=== PATIENT | female | born 1955 | race Caucasian/White ===

== ENCOUNTER 2019-04-15 10:03 | Emergency (ER) | payer OTHER, SELFPAY ==
[2019-04-15 10:18] VITALS: BP 172/87; PULSE 100; RESP 18; TEMP 36.8; O2SAT 100
[2019-04-15 10:24] VITALS: BP 162/91; PULSE 100; RESP 18; TEMP 36.8; O2SAT 100; BMI 19.3
--- NOTE | 2019-04-15 11:36 | ED.SKABFB ---
HPI - Skin/Abscess/Foreign Bdy <DOT Sewell-BC - Last Filed: 04/15/19 13:56> General Chief complaint: Skin/Abscess/Foreign Body Stated complaint: strept throat/right arm/shoulder pain x8 days Time Seen by Provider: 04/15/19 11:04 Source: patient and family Mode of arrival: Family Vehicle Limitations: no limitations History of Present Illness HPI narrative: The patient is a 63-year-old presents with a chief complaint of sore throat, painful right arm and rash. She states that her right arm pain has been shooting electric feeling and going on for several days. Yesterday she noticed a red blistery rash on her chest, radiating around to her back only on the right side. She states that all of her symptoms or on her right side. She complains of general fatigue and sore throat she states the sore throat started approximately 8 days ago and she saw a chiropractor. Chiropractor prescribed an herbal supplement called 303 which is an anti-inflammatory/muscle relaxer so states the patient. She states this did not help. She is concerned about the rash as she has family coming for Thanksgiving next week. She denies any chest pain or shortness of breath. She Related Data Previous Rx's Medication Instructions Recorded gabapentin 100 mg PO BID #20 cap 04/15/19 hydrocodone-acetaminophen [Willoughby] 1 tab PO Q4-6H PRN #7 tab 04/15/19 prednisone 50 mg PO DAILY #5 tab 04/15/19 valacyclovir 1,000 mg PO TID 7 Days #21 tab 04/15/19 Allergies Allergy/AdvReac Type Severity Reaction Status Date / Time Sulfa (Sulfonamide Allergy Unknown Verified 04/15/19 10:35 Antibiotics) Review of Systems <RENITA SewellBC - Last Filed: 04/15/19 13:56> Review of Systems Narrative: GENERAL: Denies chills, fatigue, malaise, fever, sweats. HEENT: See HPI RESPIRATORY: Denies dyspnea, cough, wheezing, hemoptysis, sputum. CARDIOVASCULAR: Denies chest pain, palpitations, orthopnea, edema, GASTROINTESTINAL: Denies nausea, vomiting, abdominal pain, diarrhea, constipation, melena. : Denies dysuria, frequency, incontinence, hematuria, urinary retention. MUSCULOSKELETAL: denies weakness, joint pain, or bony pain SKIN: See HPI NEUROLOGIC: Denies weakness, headache, numbness, change in speech, confusion, seizures, incoordination. PSYCHIATRIC: No concerning psychosocial issues. 12 point review of systems is negative except for those stated above Patient History <Ly LOLA Gill - Last Filed: 04/15/19 13:56> Social History Smoking Status: Former smoker alcohol intake frequency: 0-2 drinks per day Substance Use Type: does not use Exam <Ly LOLA Gill - Last Filed: 04/15/19 13:56> Narrative Exam Narrative: GENERAL: Thin female in no acute distress HEAD: Atraumatic. Normocephalic. No temporal or scalp tenderness. EYES: Pupils equal round and reactive. Extraocular motions intact. No scleral icterus. No injection or drainage. ENT: Nose without bleeding, purulent drainage or septal hematoma. Throat without erythema, tonsillar hypertrophy or exudate. Uvula midline. Airway patent. NECK: Trachea midline. No JVD or lymphadenopathy. Supple, nontender, no meningeal signs. CARDIOVASCULAR: Regular rate and rhythm without murmurs, gallops, or rubs. RESPIRATORY: Clear to auscultation. Breath sounds equal bilaterally. No wheezes, rales, or rhonchi. No cough. No increased respiratory effort. No accessory muscle use. GASTROINTESTINAL: Abdomen soft, non-tender, nondistended. No hepato-splenomegaly, or palpable masses. No guarding. EXTREMITIES: No clubbing, cyanosis, or edema. No joint tenderness, effusion, or edema noted. BACK: Nontender without deformity or crepitance. No flank tenderness. NEURO: AOx3. SKIN: Vesicular rash noted on right side of chest and back, following dermatome, radiating around just distal to the axilla. Crusting noted. No rash on face or in her eyes. No spreading erythema. Initial Vital Signs Initial Vital Signs: Vital Signs Temperature 98.2 F 04/15/19 10:18 Pulse Rate 100 H 04/15/19 10:18 Respiratory Rate 18 04/15/19 10:18 Blood Pressure 172/87 H 04/15/19 10:18 Pulse Oximetry 100 04/15/19 10:18 <Chelsie Hoff DO - Last Filed: 04/18/19 07:03> Initial Vital Signs Initial Vital Signs: Vital Signs Temperature 98.2 F 04/15/19 10:18 Pulse Rate 100 H 04/15/19 10:18 Respiratory Rate 18 04/15/19 10:18 Blood Pressure 172/87 H 04/15/19 10:18 Pulse Oximetry 100 04/15/19 10:18 Course <DOT Sewell- - Last Filed: 04/15/19 13:56> Vital Signs Vital signs: Vital Signs - 8 hr 04/15/19 10:18 04/15/19 10:24 Temperature 98.2 F 98.2 F Pulse Rate 100 H 100 H Respiratory Rate 18 18 Blood Pressure 162/91 H Blood Pressure [Left Arm] 172/87 H Pulse Oximetry 100 100 <Chelsie Hoff DO - Last Filed: 04/18/19 07:03> Vital Signs Vital signs: Vital Signs - 8 hr 04/15/19 10:18 04/15/19 10:24 Temperature 98.2 F 98.2 F Pulse Rate 100 H 100 H Respiratory Rate 18 18 Blood Pressure 162/91 H Blood Pressure [Left Arm] 172/87 H Pulse Oximetry 100 100 MDM - Skin/Abscess/Foreign Bdy <DOT Sewell- - Last Filed: 04/15/19 13:56> Lab Data Labs: Point of Care Testing Rapid Strep A Negative MDM Narrative Medical decision making narrative: The patient is a 63-year-old female who presents with various complaints including sore throat, arm pain, and rash. Her exam indicates shingles, which I likely believe contributed to her general feelings of malaise prior to the rash breaking out. Given that the rash occurred in the past day or 2, started her on valacyclovir. For her pain a prescribe gabapentin, prednisone and Willoughby. I discussed that prednisone can increased blood sugars etc. Discussed that Willoughby can be constipating and sedating. Encourage PCP follow-up in the next few days. I spent time with the patient discussing that shingles could easily be transmitted, to avoid patient's her immunocompromised such as cancer treatment in unvaccinated children. Patient has no questions or concerns upon discharge and states understanding of return precautions as well as follow-up care. I did not force with the patient that if she or someone she knows develops rash on her face, or eyes to be evaluated immediately. <Chelsie Silvanick, DO - Last Filed: 04/18/19 07:03> Lab Data Labs: Point of Care Testing Rapid Strep A Negative Discharge Plan Departure Patient Disposition: Home Clinical Impression: Shingles Qualifiers: Herpes zoster complications: without complications Qualified Code(s): B02.9 - Zoster without complications Discharge Date/Time: 04/15/19 12:24 Instructions: Shingles (Herpes Zoster) (Alternative Therapy), DI for Shingles Activity Restrictions/Additional Instructions: Your rash appears to be shingles. This is an infection and the nerves in skin. It is caused by the same virus that causes chickenpox. I have prescribed an antiviral medication. I have also given you pain medications and steroids. Please follow up with primary care provider. As discussed, this rash can be spread to others especially those with decreased immune systems such as those in cancer treatment or unvaccinated children. Please follow up with primary care provider in the next few days. Please monitor for rash on her face or near your eyes. Please be evaluated if this happens. Prescriptions: New valacyclovir 1 gram tablet 1,000 mg PO TID 7 Days Qty: 21 RF: 0 hydrocodone-acetaminophen [Willoughby] 5-325 mg tablet 1 tab PO Q4-6H PRN (Reason: pain) Qty: 7 RF: 0 gabapentin 100 mg capsule 100 mg PO BID Qty: 20 RF: 0 prednisone 50 mg tablet 50 mg PO DAILY Qty: 5 RF: 0
== END 2019-04-15 12:24 | disposition home or self-care (01) ==
PROVIDERS: Emergency Provider Nurse Practitioner Family
DX: B02.9 Zoster without complications (principal)
CPT/HCPCS: 87880; 99282; 99283

== ENCOUNTER 2019-08-02 08:15 | Outpatient (RCR) | payer OTHER, SELFPAY ==
--- NOTE | 2019-07-12 17:30 | PT.OIE ---
Current Diagnoses Pain in unspecified shoulder (07/12/19) Muscle weakness (generalized) (07/12/19) Abnormal posture (07/12/19) Past Medical History (Last Updated 06/15/19 @ 16:00 by KENNY Lee) Anemia (Inactive ~1992) Chicken pox (Resolved ~1963) Eczema (Inactive) Fibroids (Inactive ~1992) Frozen shoulder (Acute) Herpes (Inactive ~2012) Human papilloma virus (Inactive) Mumps (Resolved ~1959) Osteopenia (Chronic) Post herpetic neuralgia (Acute) Shoulder pain (Chronic ~2018) Visit Care Team Role Provider Type KENNY Lee Referring Provider Advanced Staffing Operations Manager Specialty: Family Practice Address: [address] [place] [address], [id number] Email: [email or web address] Norah Hawkins [place] Primary Care Provider Non-Staff Specialty: Medical Address: [address] [place] [address], [id number] Email: Jameson Pickering DO Attending Provider Physician Other Providers Specialty: Family Practice Address: [address] [place] [address], [id number] Email: [email or web address] Initial Evaluation PT-OP-A Visit Information Start: 07/17/19 17:08 Freq: Status: Active Protocol: Document 07/12/19 17:09 AW (Rec: 07/17/19 18:02 AW [id number]) Out-Patient Physical Therapy Visit Information Visit Information Visit Type Initial Evaluation Visit Start Time 16:00 Visit Stop Time 16:45 Total Visit Minutes 45 Visit Number 1 Number of CAR TOP BOLTER Visits 0 Evaluation Information Evaluation Date 07/12/19 PT-OP-B Current Condition Start: 07/17/19 17:08 Freq: Status: Active Protocol: Document 07/12/19 17:09 AW (Rec: 07/17/19 18:02 AW [id number]) Current Condition History of Current Condition Onset Date 04/15/19 Current Complaints right shoulder and elbow pain, weakness History of Current Condition Pt was seen in the emergency department on for a rash across her chest and right arm along with painful and weak right arm. She was diagnosed with shingles and prescribed gabapentin, prednisone, and norco which she used but not for as long as prescribed. She describes being essentially immobile for ~20 hours per day during the worst part of her illness, unable to use her right arm at all. She states she wasn't strong enough to hold a pencil ~3 weeks ago and has had difficulty sleeping. She endorses burning sensation above and below her right elbow and a constant sensation as if she hit her funny bone. 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 Pt lives alone and has had to adapt for ADL management. She states she has been wearing mostly leggings due to difficulty with buttoning and zipping. She is taking showers now but believes it takes twice as long as normal due to weakness and pain in her right arm. She is toileting independently but using her left hand for hygiene. Prior Treatments and Tests Pt had hand therapy and is independent with a home program for hand exercises and pulleys at home. She has also tried massage and accupuncture. 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 Baseline Function- Recreation/Hobbies Able to hike up to 4 miles at a time with uneven terrain and elevation changes Baseline Function- Other Able to open jars and use drafting tools with her RUE. Current Functional Impairments (Reported) Functional Limitations- ADL's Difficulty managing buttons, sippers. Increased time needed for showers due to pain and weakness of RUE. Needs to use left hand to complete toilet hygiene Functional Limitations- Work/School Unable to use drafting tools > 1-1.5 hours at a time and with increased difficulty. 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 Functional Limitations- Recreation/ Currently walking up to 3 Hobbies miles at a time but only on flat surfaces PT-OP-C Subjective Start: 07/17/19 17:08 Freq: Status: Active Protocol: Document 07/12/19 17:09 AW (Rec: 07/18/19 16:55 AW [id number]) Patient Questionnaires Quick Dash- Upper Extremity Quick Dash UE Score 68 Quick Dash UE Impairment 60 to 79% Impaired (Score 60- 79) PT-OP-H Neuro Start: 07/17/19 17:08 Freq: Status: Active Protocol: Document 07/12/19 17:09 AW (Rec: 07/17/19 18:02 AW [id number]) Sensation Evaluation Gross Sensation Gross Sensation Right UE Impaired Sensation Description Burning Comments Summary Comments Burning sensation present above and below right elbow. Coordination Evaluation Upper Extremity Tests Right Finger to Nose Test Normal Performance Finger to Therapist's Finger Test Normal Performance Comments Coordination Comments No difference in UE coordination noted side to side. PT-OP-J Posture/Palpation/Skin Start: 07/17/19 17:08 Freq: Status: Active Protocol: Document 07/12/19 17:09 AW (Rec: 07/17/19 18:02 AW [id number]) Posture Evaluation Position Sitting Evaluation View Lateral Comments Posture Comments R arm held in internal rotation. Slight scapular winging noted on right side. PT-OP-K Range of Motion Start: 07/17/19 17:08 Freq: Status: Active Protocol: Document 07/12/19 17:09 AW (Rec: 07/17/19 18:02 AW [id number]) Cervical Spine Range of Motion Cervical Spine Active Degrees Testing Position Sitting Flexion 22 Extension 10 Rotation Left 70 Rotation Right 55 ROM Limitations Soft Tissue Tightness Comments Pt reports tight posterior neck musculature with active flexion Shoulder Goniometric Range of Motion Shoulder Right Active Flexion 150 Abduction 90 External Rotation at 0 degrees Abduction 55 Internal Rotation Behind Back (text) T12 Left Active Flexion 160 Abduction 160 External Rotation at 0 degrees Abduction 65 Internal Rotation Behind Back (text) T6 Shoulder ROM Limitations Shoulder ROM Limitations Muscle Weakness,Pain Comments Pt able to perform forward flexion on the right but tends to hike her shoulder. Elbow/Forearm Range of Motion Elbow/Forearm Right Active ROM Testing Position Sitting Elbow/Forearm ROM Limitations Comments Supination/pronation equal bilaterally without restriction. R elbow lacks ~5 degrees active extension Wrist Goniometric Range of Motion ROM Limitations Comments Unable to assess due to elbow/ wrist pain PT-OP-L Special Tests Start: 07/17/19 17:08 Freq: Status: Active Protocol: Document 07/12/19 17:09 AW (Rec: 07/17/19 18:02 AW [id number]) Special Tests Cervical Spine Special Tests Spurling's Test Test Results negative bilaterally Neural Special Tests- Upper Body Tinel Sign Test Results right positive in ulnar distribution Comments testing produces tingling in ulnar side of hand PT-OP-M Strength Start: 07/17/19 17:08 Freq: Status: Active Protocol: Document 07/12/19 17:09 AW (Rec: 07/17/19 18:02 AW [id number]) Shoulder Strength Shoulder Manual Muscle Testing Right Flexion 4+ Good+ Extension 4+ Good+ Abduction (C5) 4 Good Comments Unable to assess IR/ER due to pain. Left Flexion 5 Normal Extension 5 Normal Abduction (C5) 5 Normal External Rotation 4+ Good+ Internal Rotation 4+ Good+ Elbow/Forearm Strength Elbow and Forearm Manual Muscle Testing Right Reason Not Measured Pain Wrist Strength Wrist Manual Muscle Testing Right Reason Not Measured Pain Hand Plier Worker/Pinch Strength Hand Dominance Hand Dominance Right Hand Strength Right Comments Plier Worker 4+/5 left, 3+/5 right PT-OP-Q Treatments Start: 07/17/19 17:08 Freq: Status: Active Protocol: Document 07/12/19 17:09 AW (Rec: 07/17/19 18:02 AW [id number]) Therapeutic Exercises Supine Exercises scapular protraction Supine Exercise Name scapular protraction Side bilateral Reps/Minutes 10 reps x 2 Sitting Exercises scapular retraction Sitting Exercise Name scapular retraction Side bilateral Reps/Minutes 15 reps x 2 Comments tolerated well Self-Care/Home Management Treatment Education Patient Education Home Exercise Program PT-OP-T Assessment and Plan Start: 07/17/19 17:08 Freq: Status: Active Protocol: Document 07/12/19 17:09 AW (Rec: 07/17/19 18:02 AW [id number]) Physical Therapy Assessment Rehab Potential Rehabilitation Potential Excellent Evaluation Complexity Number of Personal Factors/Comorbidities 1-2 Number of Body Systems Impaired 1-2 Clinical Presentation at Evaluation Stable Impairments Impairments Activity Tolerance,Functional Activities,Functional Mobility ,Pain,Posture,ROM,Sensation, Soft Tissue Mobility,Strength Goals Four Impairment Sensation disturbance in RUE Retirement Goal (LTG) Pt will report reduction in burning sensation around her right elbow as evidenced by ability to sleep 6 hours or greater without waking due to pain. LTG Duration 10/04/[address] Goal (LTG) Pt will demonstrate RUE strength within one half-grade of LUE for improved symmetry and ability to participate in work and recreation. LTG Duration 10/04/2019 Two Impairment 68% disability on quick DASH Short Term Goal (STG) Pt will score 55% or less on quick DASH to demonstrate decreased disability relative to RUE STG Duration 08/23/2019 Retirement Goal (LTG) Pt will score 40% or less on quick DASH to demonstrate decreased disability relative to RUE LTG Duration 10/04/2019 One Impairment Difficulty performing work duties Short Term Goal (STG) Pt will use pencil/drafting tools with right hand to work up to 3 hours at a time. 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 She has undergone hand therapy with good results. 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 Her RUE strength is significantly less than her LUE and she presents with symptoms consistent with postherpetic neuralgia affecting the region around her right elbow. She will benefit from outpatient PT to address strength and functional activity deficits as well as to work on desensitization of her RUE. She would benefit from a primarily land-based approach but is also interested in trying aquatic therapy a few times during her plan of care. Physical Therapy Plan Frequency and Duration Frequency of Treatment 1-2x/week Duration of Treatment 12 weeks Plan of Care Start Date 07/12/19 Plan of Care End Date 10/04/19 Therapeutic Interventions Therapeutic Interventions Aquatic Therapy,Home Exercise Program,Joint Mobilizations, Manual Therapy,Neuromuscular Re-education,Patient/Caregiver Education,Self-Care/Home Management,Sensory Integration ,Soft Tissue Mobilization, Taping,Therapeutic Activities, Therapeutic Exercises Modalities Cold Pack/Ice Massage,Electric Stimulation Next Visit Focus/Plan Next Note Type Treatment Note
--- NOTE | 2019-07-12 17:30 | PT.OPPOC ---
Physical, Occupational & Speech Therapy At [facility] Current Diagnoses Pain in unspecified shoulder (07/12/19) Muscle weakness (generalized) (07/12/19) Abnormal posture (07/12/19) Visit Care Team Role Provider Type KENNY Lee Referring Provider Advanced Reel Winder Specialty: Family Practice Address: [address] [place] [address], [id number] Email: [email or web address] Norah Hawkins ND Primary Care Provider Non-Staff Specialty: Medical Address: [address] [place] [address], [id number] Email: Jameson Pickering DO Attending Provider Physician Other Providers Specialty: [facility] Practice Address: [address] [place] [address], [id number] Email: [email or web address] Plan Of Care PT-OP-T Assessment and Plan Start: 07/17/19 17:08 Freq: Status: Active Protocol: Document 07/12/19 17:09 AW (Rec: 07/17/19 18:02 AW [id number]) Physical Therapy Assessment Rehab Potential Rehabilitation Potential Excellent Evaluation Complexity Number of Personal Factors/Comorbidities 1-2 Number of Body Systems Impaired 1-2 Clinical Presentation at Evaluation Stable Impairments Impairments Activity Tolerance,Functional Activities,Functional Mobility ,Pain,Posture,ROM,Sensation, Soft Tissue Mobility,Strength Goals Four Impairment Sensation disturbance in RUE Servicer [employer] Trailers Goal (LTG) Pt will report reduction in burning sensation around her right elbow as evidenced by ability to sleep 6 hours or greater without waking due to pain. LTG Duration 10/04/2019 Three Impairment strength Shelter Goal (LTG) Pt will demonstrate RUE strength within one half-grade of LUE for improved symmetry and ability to participate in work and recreation. LTG Duration 10/04/2019 Two Impairment 68% disability on quick DASH Short Term Goal (STG) Pt will score 55% or less on quick DASH to demonstrate decreased disability relative to RUE STG Duration 08/23/2019 [employer] [address]ers Goal (LTG) Pt will score 40% or less on quick DASH to demonstrate decreased disability relative to RUE LTG Duration 10/04/2019 One Impairment Difficulty performing work duties Short Term Goal (STG) Pt will use pencil/drafting tools with right hand to work up to 3 hours at a time. 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 She has undergone hand therapy with good results. 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 Her RUE strength is significantly less than her LUE and she presents with symptoms consistent with postherpetic neuralgia affecting the region around her right elbow. She will benefit from outpatient PT to address strength and functional activity deficits as well as to work on desensitization of her RUE. She would benefit from a primarily land-based approach but is also interested in trying aquatic therapy a few times during her plan of care. Physical Therapy Plan Frequency and Duration Frequency of Treatment 1-2x/week Duration of Treatment 12 weeks Plan of Care Start Date 07/12/19 Plan of Care End Date 10/04/19 Therapeutic Interventions Therapeutic Interventions Aquatic Therapy,Home Exercise Program,Joint Mobilizations, Manual Therapy,Neuromuscular Re-education,Patient/Caregiver Education,Self-Care/Home Management,Sensory Integration ,Soft Tissue Mobilization, Taping,Therapeutic Activities, Therapeutic Exercises Modalities Cold Pack/Ice Massage,Electric Stimulation Next Visit Focus/Plan Next Note Type Treatment Note Plan of Care Dates Plan of Care Start Date 07/12/19 Plan of Care End Date 10/04/19 Electronically Signed by: Milla Arcos, PT 07/18/19 [id number] Please Sign and Return: I have reviewed this Plan of Care and certify that the skilled therapy services above are required to meet the patient?s needs. Physician Signature Date Printed Name and Credentials Clinical Instructor Signature Printed Name and Credentials
--- NOTE | 2019-07-19 16:54 | PT.OTN ---
Current Diagnoses Pain in unspecified shoulder (07/19/19) Muscle weakness (generalized) (07/19/19) Abnormal posture (07/19/19) Physical Therapy Treatment Note PT-OP-A Visit Information Start: 07/17/19 17:08 Freq: Status: Active Protocol: Document 07/19/19 16:32 AW (Rec: 07/19/19 16:54 AW [id number]) Out-Patient Physical Therapy Visit Information Visit Information Visit Type Treatment Note Visit Start Time 13:45 Visit Stop Time 14:30 Total Visit Minutes 45 Visit Number 2 Number of SIDE TRIMMER Visits 0 Evaluation Information Evaluation Date 07/12/19 PT-OP-B Current Condition Start: 07/17/19 17:08 Freq: Status: Active Protocol: Document 07/12/19 17:09 AW (Rec: 07/17/19 18:02 AW [id number]) Current Condition History of Current Condition Onset Date 04/15/19 Current Complaints right shoulder and elbow pain, weakness History of Current Condition Pt was seen in the emergency department on for a rash across her chest and right arm along with painful and weak right arm. She was diagnosed with shingles and prescribed gabapentin, prednisone, and norco which she used but not for as long as prescribed. She describes being essentially immobile for ~20 hours per day during the worst part of her illness, unable to use her right arm at all. She states she wasn't strong enough to hold a pencil ~3 weeks ago and has had difficulty sleeping. She endorses burning sensation above and below her right elbow and a constant sensation as if she hit her funny bone. 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 Pt lives alone and has had to adapt for ADL management. She states she has been wearing mostly leggings due to difficulty with buttoning and zipping. She is taking showers now but believes it takes twice as long as normal due to weakness and pain in her right arm. She is toileting independently but using her left hand for hygiene. Prior Treatments and Tests Pt had hand therapy and is independent with a home program for hand exercises and pulleys at home. She has also tried massage and accupuncture. Future Testing and Treatments Planned None identified Treatment Goals Patient/Caregiver Goals Pt hopes to have return of full function in her RUE to support full return to work drafting 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 Baseline Function- Recreation/Hobbies Able to hike up to 4 miles at a time with uneven terrain and elevation changes Baseline Function- Other Able to open jars and use drafting tools with her RUE. Current Functional Impairments (Reported) Functional Limitations- ADL's Difficulty managing buttons, sippers. Increased time needed for showers due to pain and weakness of RUE. Needs to use left hand to complete toilet hygiene Functional Limitations- Work/School Unable to use drafting tools > 1-1.5 hours at a time and with increased difficulty. 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 Functional Limitations- Recreation/ Currently walking up to 3 Hobbies miles at a time but only on flat surfaces PT-OP-C Subjective Start: 07/17/19 17:08 Freq: Status: Active Protocol: Document 07/19/19 16:32 AW (Rec: 07/19/19 16:54 AW [id number]) OP-PT Subjective Patient Comments Patient Comments Pt has done less pruning in the past week and got her tools sharpened to increase ease of use. She feels she is able to appreciate an overall arc of improvement in her symptoms but is frustrated at how slowly things are progressing. PT-OP-H Neuro Start: 07/17/19 17:08 Freq: Status: Active Protocol: Document 07/12/19 17:09 AW (Rec: 07/17/19 18:02 AW [id number]) Sensation Evaluation Gross Sensation Gross Sensation Right UE Impaired Sensation Description Burning Comments Summary Comments Burning sensation present above and below right elbow. Coordination Evaluation Upper Extremity Tests Right Finger to Nose Test Normal Performance Finger to Therapist's Finger Test Normal Performance Comments Coordination Comments No difference in UE coordination noted side to side. PT-OP-J Posture/Palpation/Skin Start: 07/17/19 17:08 Freq: Status: Active Protocol: Document 07/12/19 17:09 AW (Rec: 07/17/19 18:02 AW [id number]) Posture Evaluation Position Sitting Evaluation View Lateral Comments Posture Comments R arm held in internal rotation. Slight scapular winging noted on right side. PT-OP-K Range of Motion Start: 07/17/19 17:08 Freq: Status: Active Protocol: Document 07/12/19 17:09 AW (Rec: 07/17/19 18:02 AW [id number]) Cervical Spine Range of Motion Cervical Spine Active Degrees Testing Position Sitting Flexion 22 Extension 10 Rotation Left 70 Rotation Right 55 ROM Limitations Soft Tissue Tightness Comments Pt reports tight posterior neck musculature with active flexion Shoulder Goniometric Range of Motion Shoulder Right Active Flexion 150 Abduction 90 External Rotation at 0 degrees Abduction 55 Internal Rotation Behind Back (text) T12 Left Active Flexion 160 Abduction 160 External Rotation at 0 degrees Abduction 65 Internal Rotation Behind Back (text) T6 Shoulder ROM Limitations Shoulder ROM Limitations Muscle Weakness,Pain Comments Pt able to perform forward flexion on the right but tends to hike her shoulder. Elbow/Forearm Range of Motion Elbow/Forearm Right Active ROM Testing Position Sitting Elbow/Forearm ROM Limitations Comments Supination/pronation equal bilaterally without restriction. R elbow lacks ~5 degrees active extension Wrist Goniometric Range of Motion ROM Limitations Comments Unable to assess due to elbow/ wrist pain PT-OP-L Special Tests Start: 07/17/19 17:08 Freq: Status: Active Protocol: Document 07/12/19 17:09 AW (Rec: 07/17/19 18:02 AW [id number]) Special Tests Cervical Spine Special Tests Spurling's Test Test Results negative bilaterally Neural Special Tests- Upper Body Tinel Sign Test Results right positive in ulnar distribution Comments testing produces tingling in ulnar side of hand PT-OP-M Strength Start: 07/17/19 17:08 Freq: Status: Active Protocol: Document 07/12/19 17:09 AW (Rec: 07/17/19 18:02 AW [id number]) Shoulder Strength Shoulder Manual Muscle Testing Right Flexion 4+ Good+ Extension 4+ Good+ Abduction (C5) 4 Good Comments Unable to assess IR/ER due to pain. Left Flexion 5 Normal Extension 5 Normal Abduction (C5) 5 Normal External Rotation 4+ Good+ Internal Rotation 4+ Good+ Elbow/Forearm Strength Elbow and Forearm Manual Muscle Testing Right Reason Not Measured Pain Wrist Strength Wrist Manual Muscle Testing Right Reason Not Measured Pain Hand Lockstitch Shoulder Joiner/Pinch Strength Hand Dominance Hand Dominance Right Hand Strength Right Comments Lockstitch Shoulder Joiner 4+/5 left, 3+/5 right PT-OP-Q Treatments Start: 07/17/19 17:08 Freq: Status: Active Protocol: Document 07/19/19 16:32 AW (Rec: 07/19/19 16:54 AW [id number]) Therapeutic Exercises Supine Exercises rhythmic stabilization Supine Exercise Name rhythmic stabilization Side right Resistance manual Reps/Minutes 2 minutes Comments changing direction and amount of force with pt supine in 90 deg fwd flexion scapular protraction Supine Exercise Name scapular protraction Side bilateral Reps/Minutes 10 reps x 2 Sitting Exercises pulleys Sitting Exercise Name pulleys Side bilateral Reps/Minutes 3 minutes Comments fwd flexion/abduction/scaption towel desensitization Sitting Exercise Name towel desensitization Side right Equipment Used rough dry towel Reps/Minutes 3 minutes Comments light touch, deep pressure along anterior arm and forearm table slides Sitting Exercise Name table slides Side bilateral Reps/Minutes 20 sec hold x 5 Comments for pectoral/axillary stretch scapular retraction Sitting Exercise Name scapular retraction Side bilateral Reps/Minutes 15 reps x 2 Comments tolerated well Standing Exercises resisted elbow extension Standing Exercise Name resisted elbow extension Side bilateral Resistance level 1 Equipment Used TB Reps/Minutes 15 reps resisted rows Standing Exercise Name resisted rows Side bilateral Resistance level 1 Equipment Used TB Reps/Minutes 15 reps resisted shoulder extension Standing Exercise Name resisted shoulder extension Side bilateral Resistance level 1 Equipment Used TB Reps/Minutes 15 reps Manual Therapy Treatment Soft Tissue Mobilization 1 Body Location right trapezius, lev scap, rhomboids Mobilization Type Myofascial Release,Sustained Pressure Intensity/Depth Moderate Body Position Hooklying Comments tolerated well with improved left rotation PT-OP-T Assessment and Plan Start: 07/17/19 17:08 Freq: Status: Active Protocol: Document 07/19/19 16:32 AW (Rec: 07/19/19 16:54 AW [id number]) Physical Therapy Assessment Impairments Impairments Activity Tolerance,Functional Activities,Functional Mobility ,Pain,Posture,ROM,Sensation, Soft Tissue Mobility,Strength Goals Four Impairment Sensation disturbance in RUE Chcf Goal (LTG) Pt will report reduction in burning sensation around her right elbow as evidenced by ability to sleep 6 hours or greater without waking due to pain. LTG Duration 10/04/2019 Three Impairment strength Chcf Goal (LTG) Pt will demonstrate RUE strength within one half-grade of LUE for improved symmetry and ability to participate in work and recreation. LTG Duration 10/04/2019 Two Impairment 68% disability on quick DASH Short Term Goal (STG) Pt will score 55% or less on quick DASH to demonstrate decreased disability relative to RUE STG Duration 08/23/2019 Taxation Agent Goal (LTG) Pt will score 40% or less on quick DASH to demonstrate decreased disability relative to RUE LTG Duration 10/04/2019 One Impairment Difficulty performing work duties Short Term Goal (STG) Pt will use pencil/drafting tools with right hand to work up to 3 hours at a time. 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 LTG Duration 10/04/2019 Assessment Summary Assessment Maki demonstrated improved active right shoulder abduction compared with evaluation this date and stated she was limited last week by soreness following increased pruning activity. She has been limiting her pruning this week and had her tools sharpened to increase efficiency. She tolerated initiation of GH and scapular strengthening but reported mild increase in neuralgia around her elbow with elbow in fully extended position. Physical Therapy Plan Frequency and Duration Frequency of Treatment 1-2x/week Duration of Treatment 12 weeks Plan of Care Start Date 07/12/19 Plan of Care End Date 10/04/19 Therapeutic Interventions Therapeutic Interventions Aquatic Therapy,Home Exercise Program,Joint Mobilizations, Manual Therapy,Neuromuscular Re-education,Patient/Caregiver Education,Self-Care/Home Management,Sensory Integration ,Soft Tissue Mobilization, Taping,Therapeutic Activities, Therapeutic Exercises Modalities Cold Pack/Ice Massage,Electric Stimulation Next Visit Focus/Plan Next Note Type Treatment Note
--- NOTE | 2019-08-02 10:35 | PT.OTN ---
Current Diagnoses Pain in unspecified shoulder (08/02/19) Muscle weakness (generalized) (08/02/19) Abnormal posture (08/02/19) Physical Therapy Treatment Note PT-OP-A Visit Information Start: 07/17/19 17:08 Freq: Status: Active Protocol: Document 08/02/19 08:16 EG (Rec: 08/02/19 09:15 EG [id number]) Out-Patient Physical Therapy Visit Information Visit Information Visit Type Treatment Note Visit Start Time 08:16 Visit Stop Time 09:00 Total Visit Minutes 44 Visit Number 3 Number of AUTO HEATER MECHANIC Visits 0 PT-OP-B Current Condition Start: 07/17/19 17:08 Freq: Status: Active Protocol: Document 07/12/19 17:09 AW (Rec: 07/17/19 18:02 AW [id number]) Current Condition History of Current Condition Onset Date 04/15/19 Current Complaints right shoulder and elbow pain, weakness History of Current Condition Pt was seen in the emergency department on for a rash across her chest and right arm along with painful and weak right arm. She was diagnosed with shingles and prescribed gabapentin, prednisone, and norco which she used but not for as long as prescribed. She describes being essentially immobile for ~20 hours per day during the worst part of her illness, unable to use her right arm at all. She states she wasn't strong enough to hold a pencil ~3 weeks ago and has had difficulty sleeping. She endorses burning sensation above and below her right elbow and a constant sensation as if she hit her funny bone. 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 Pt lives alone and has had to adapt for ADL management. She states she has been wearing mostly leggings due to difficulty with buttoning and zipping. She is taking showers now but believes it takes twice as long as normal due to weakness and pain in her right arm. She is toileting independently but using her left hand for hygiene. Prior Treatments and Tests Pt had hand therapy and is independent with a home program for hand exercises and pulleys at home. She has also tried massage and accupuncture. 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 Baseline Function- Recreation/Hobbies Able to hike up to 4 miles at a time with uneven terrain and elevation changes Baseline Function- Other Able to open jars and use drafting tools with her RUE. Current Functional Impairments (Reported) Functional Limitations- ADL's Difficulty managing buttons, sippers. Increased time needed for showers due to pain and weakness of RUE. Needs to use left hand to complete toilet hygiene Functional Limitations- Work/School Unable to use drafting tools > 1-1.5 hours at a time and with increased difficulty. 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 Functional Limitations- Recreation/ Currently walking up to 3 Hobbies miles at a time but only on flat surfaces PT-OP-C Subjective Start: 07/17/19 17:08 Freq: Status: Active Protocol: Document 08/02/19 08:16 EG (Rec: 08/02/19 09:15 EG [id number]) OP-PT Subjective Patient Comments Patient Comments Patient reports that she had a hard weekend. She had to move a lot of objects around the garage and has had to do some pruning. She reports a 6-7/10 pain in the R shoulder, down the R arm, and in to the R wrist. She wasn't able to do her yoga sequence this morning because she didn't have time. Patient Reported Progress Same PT-OP-H Neuro Start: 07/17/19 17:08 Freq: Status: Active Protocol: Document 07/12/19 17:09 AW (Rec: 07/17/19 18:02 AW [id number]) Sensation Evaluation Gross Sensation Gross Sensation Right UE Impaired Sensation Description Burning Comments Summary Comments Burning sensation present above and below right elbow. Coordination Evaluation Upper Extremity Tests Right Finger to Nose Test Normal Performance Finger to Therapist's Finger Test Normal Performance Comments Coordination Comments No difference in UE coordination noted side to side. PT-OP-J Posture/Palpation/Skin Start: 07/17/19 17:08 Freq: Status: Active Protocol: Document 07/12/19 17:09 AW (Rec: 07/17/19 18:02 AW [id number]) Posture Evaluation Position Sitting Evaluation View Lateral Comments Posture Comments R arm held in internal rotation. Slight scapular winging noted on right side. PT-OP-K Range of Motion Start: 07/17/19 17:08 Freq: Status: Active Protocol: Document 07/12/19 17:09 AW (Rec: 07/17/19 18:02 AW [id number]) Cervical Spine Range of Motion Cervical Spine Active Degrees Testing Position Sitting Flexion 22 Extension 10 Rotation Left 70 Rotation Right 55 ROM Limitations Soft Tissue Tightness Comments Pt reports tight posterior neck musculature with active flexion Shoulder Goniometric Range of Motion Shoulder Right Active Flexion 150 Abduction 90 External Rotation at 0 degrees Abduction 55 Internal Rotation Behind Back (text) T12 Left Active Flexion 160 Abduction 160 External Rotation at 0 degrees Abduction 65 Internal Rotation Behind Back (text) T6 Shoulder ROM Limitations Shoulder ROM Limitations Muscle Weakness,Pain Comments Pt able to perform forward flexion on the right but tends to hike her shoulder. Elbow/Forearm Range of Motion Elbow/Forearm Right Active ROM Testing Position Sitting Elbow/Forearm ROM Limitations Comments Supination/pronation equal bilaterally without restriction. R elbow lacks ~5 degrees active extension Wrist Goniometric Range of Motion ROM Limitations Comments Unable to assess due to elbow/ wrist pain PT-OP-L Special Tests Start: 07/17/19 17:08 Freq: Status: Active Protocol: Document 07/12/19 17:09 AW (Rec: 07/17/19 18:02 AW [id number]) Special Tests Cervical Spine Special Tests Spurling's Test Test Results negative bilaterally Neural Special Tests- Upper Body Tinel Sign Test Results right positive in ulnar distribution Comments testing produces tingling in ulnar side of hand PT-OP-M Strength Start: 07/17/19 17:08 Freq: Status: Active Protocol: Document 07/12/19 17:09 AW (Rec: 07/17/19 18:02 AW [id number]) Shoulder Strength Shoulder Manual Muscle Testing Right Flexion 4+ Good+ Extension 4+ Good+ Abduction (C5) 4 Good Comments Unable to assess IR/ER due to pain. Left Flexion 5 Normal Extension 5 Normal Abduction (C5) 5 Normal External Rotation 4+ Good+ Internal Rotation 4+ Good+ Elbow/Forearm Strength Elbow and Forearm Manual Muscle Testing Right Reason Not Measured Pain Wrist Strength Wrist Manual Muscle Testing Right Reason Not Measured Pain Hand Urgent Care/Pinch Strength Hand Dominance Hand Dominance Right Hand Strength Right Comments Urgent Care 4+/5 left, 3+/5 right PT-OP-Q Treatments Start: 07/17/19 17:08 Freq: Status: Active Protocol: Document 08/02/19 08:16 EG (Rec: 08/02/19 10:27 EG [id number]) Cardio Equipment Upper Body Ergometer (UBE) Duration (Minutes) 6 Other 3 min fwd/bkwd Therapeutic Exercises Supine Exercises Ulnar Nerve Glides Supine Exercise Name Ulnar nerve glides; flexion/ extension distal joints to proximal Reps/Minutes 10x Pec Stretch on Foam Roll Supine Exercise Name 1/2 foam roll - pec stretch Equipment Used 1/2 black foam roll Reps/Minutes 2 min Comments given for HEP Prone Exercises Cobra press-ups Prone Exercise Name Cobra press-up Reps/Minutes 10x Comments given as HEP - slight push with arms Standing Exercises Weighted ball circles Standing Exercise Name Weighted ball circles Resistance 3.3# Equipment Used red ball Reps/Minutes 10x each way Comments clockwise/CCW/up/down/side to side resisted rows Standing Exercise Name TB rows Side bilateral Resistance level 2 Equipment Used TB Reps/Minutes 2x12 Comments altnate front foot between sets; cue for correct form resisted shoulder extension Standing Exercise Name resisted shoulder extension Side bilateral Resistance level 1 Equipment Used TB Reps/Minutes 2x12 Comments cue for correct form Manual Therapy Treatment Soft Tissue Mobilization 1 Body Location R forearm flexors Mobilization Type Myofascial Release,Rolling Intensity/Depth Moderate Body Position Hooklying Manual Techniques PROM wirst and finger flexion/extension Type PROM wrist, finger, elbow flexion/extension Body Position Supine Comments patient felt like this helped PT-OP-T Assessment and Plan Start: 07/17/19 17:08 Freq: Status: Active Protocol: Document 08/02/19 08:16 EG (Rec: 08/02/19 10:27 EG [id number]) Physical Therapy Assessment Assessment Summary Assessment Patient tolerated treatment well. She does want to get back to doing her yoga salutes in the morning and so she was instructed to perform small thoracic extension with slight press of the arm to increase tolerance to this movement. Patient should continue with UE arm strengthening to address atrophy of the elbow and shoulder musculature. Patient was also curious about wrist brace and was given recommendation for brace from [facility]. She should continue with nerve glides and mobility of the elbow and wrist. Physical Therapy Plan Frequency and Duration Frequency of Treatment 1-2x/week Duration of Treatment 12 weeks Plan of Care Start Date 07/12/19 Plan of Care End Date 10/04/19 Next Visit Focus/Plan Next Note Type Treatment Note Next Visit Plan Assess cobra pose. Intoduce modifications for sun salutations. Increase UE strengthening as tolerated. IMelba, SAMMIE, supervised all treatment performed by, and agreed with the plan of care, as performed by Beti Calle, TORO.
--- NOTE | 2019-09-20 12:22 | PT-IP ANOTE ---
Contacted pt to check if interested in re-starting PT once clinic opens. She requested to wait until later in September. This therapist will check in with the patient again in 4 weeks.
--- NOTE | 2020-01-11 12:54 | PT-OP ANOTE ---
Pt not seen in clinic since August 02, 2019. Contacted pt who reports no further PT services needed at this time.
== END 2020-01-17 09:03 ==
LOC: PHYS 08:15
PROVIDERS: PCP Naturopath; Referring Provider Nurse Practitioner; Visit Provider Family Medicine
DX: M25.519 Pain in unspecified shoulder (principal); M62.81 Muscle weakness (generalized); R29.3 Abnormal posture
CPT/HCPCS: 97110; 97140; 97161

== ENCOUNTER → 2024-05-26 08:50 | Outpatient (CLI) | payer MEDICARE, BC, SELFPAY ==
--- NOTE | 2024-05-26 08:55 | DI.US.S_ITS ---
PROCEDURE: US PELVIC COMPLETE INDICATIONS: postmenopausal bleeding TECHNIQUE: Real-time scanning was performed of the pelvic organs, with image documentation. Additional endovaginal scanning was necessary due to incomplete visualization of the adnexal and endometrial structures by transabdominal scanning. COMPARISON: None. FINDINGS: Uterus: Uterus is anteverted and normal in size at 7.2 x 1.9 x 6.1 cm. The myometrium is heterogeneous. 2.5 x 2 x 2.4 cm intramural fibroid is noted in left myometrium. The endometrium is not well seen. There is suggestion of a hypoechoic and solid appearing endometrial mass measures 4.5 x 3.4 x 5.7 cm in size and show internal vascularity. Ovaries: The right ovary is not visualized. The left ovary measures 1.4 x 1.5 x 0.7 cm, with a calculated ovarian volume of 0.7 cc. The ovaries have a normal sonographic appearance. Less than 12 follicles can be seen in each ovary. No adnexal masses are seen. Other: No pathologic free abdominal or pelvic fluid. IMPRESSION: 1. Heterogeneous myometrial echotexture with at least 1 uterine fibroid as above. 2. Limited evaluation of endometrium with suggestion of a 4.5 x 3.4 x 5.7 cm endometrial mass versus large submucosal fibroid. [employer] correlation is recommended. No endometrial fluid. 3. Right ovary is not visualized. No adnexal mass. Left ovary is within normal limits. We strive to produce accurate, complete, and clear reports of imaging services. To assist us in improving patient care, this report was composed using standard report templates and voice recognition software. Therefore, it may contain abnormal punctuation, insertions and/or omissions. Occasional wrong-word or sound-alike substitutions may occur. Though we review the report and make efforts to correct it, we do recommend that the report be read carefully in proper context to recognize any text inaccuracies. Dictated by: Isaias Dempsey M.D. on 05/26/2024 at 15:01 Approved by: Isaias Dempsey M.D. on 05/26/2024 at 15:04
== END ==
PROVIDERS: PCP Naturopath; Referring Provider Registered Nurse; Visit Provider Registered Nurse
DX: N95.0 Postmenopausal bleeding (principal); D25.1 Intramural leiomyoma of uterus
CPT/HCPCS: 76830; 76856